=== PATIENT | male | born 1945 | race Two or more races ===

== ENCOUNTER 2017-07-03 09:41 | Emergency (ER) | payer MEDICARE ==
[2017-07-03 10:40] VITALS: BP 153/79
--- NOTE | 2017-07-03 11:18 | UC ---
Skin Complaint HPI - HPI Summary HPI Summary: Pt present with 3 days ago had pneumovacc to LUE. Pt states had discomfort and mild erythema at site of inject. Pt states since yesterday has increased edema to elbow and increased reddness spreading to elbow. Pt states little discomfort except with full flexion of elbow - states feels tight in midarm second to swelling. no elbow pain. No fevers, chills. No nausea Not immuocompromised. LHD Pt states called PCP today - no call returned Pt's medications reviewed this visit - History of Current Complaint Chief Complaint: UCSkin Time Seen by Provider: 07/03/17 10:44 Stated Complaint: RED SWOLLEN AREA ON ARM Hx Obtained From: Patient Onset/Duration: Gradual Onset - Allergy/Home Medications Allergies/Adverse Reactions: Allergies Allergy/AdvReac Type Severity Reaction Status Date / Time Penicillins Allergy Unknown Unknown Verified 07/03/17 10:40 Reaction Details Home Medications: Home Medications Metoprolol Tartrate TAB* [Lopressor TAB*] 50 mg PO DAILY 07/03/17 [History Confirmed 07/03/17] Review of Systems Constitutional: Negative Skin: Other - erythema, edema Neurovascular: Negative Musculoskeletal: Edema Neurological: Negative Psychological: Negative All Other Systems Reviewed And Are Negative: Yes PMH/Surg Hx/FS Hx/Imm Hx Previously Healthy: Yes - Surgical History Surgical History: Yes Surgery Procedure, Year, and Place: 08/2008 (right) hydrocele CABG x 4 1992 - Family History Known Family History: Positive: Cardiac Disease - parents - Social History Occupation: Retired Lives: With Family Alcohol Use: Rare Substance Use Type: None Smoking Status (MU): Never Smoked Tobacco Physical Exam Triage Information Reviewed: Yes Appearance: Well-Appearing, No Pain Distress Vital Signs: Initial Vital Signs Temp 99.0 F 07/03/17 10:34 Pulse 79 07/03/17 10:34 Resp 20 07/03/17 10:34 BP 153/79 07/03/17 10:34 Pulse Ox 99 07/03/17 10:34 Vital Signs Reviewed: Yes Eye Exam: Normal Eyes: Positive: Conjunctiva Clear ENT Exam: Normal ENT: Positive: Normal ENT inspection Dental Exam: Normal Neck exam: Normal Neck: Positive: Supple, Nontender Respiratory Exam: Normal Respiratory: Positive: Chest non-tender, Lungs clear, Normal breath sounds, No respiratory distress, No accessory muscle use Cardiovascular Exam: Normal Cardiovascular: Positive: RRR, No Murmur, Other: - 2+ radial 2+ulna CBT , 2 < sec Musculoskeletal Exam: Normal Musculoskeletal: Positive: Other: - full flex/ext elbow full pronate/supinate full flex/ext wrist Pt with edema from midshaft humerus to prox elbow mild TTP No fluctuance Skin: Positive: Other - t with edema from midshaft humerus to prox elbow mild TTP No fluctuance. Pt with erythema from midshaft humerus extending along dosral arm to elbow mild warmth no fluctuance, no induration Course/Dx - Course Course Of Treatment: Pt with edema and erythema extending from midhumerus to elbow s/p pneunovacc injection. Pt with LHD. Pt well appearing with stable VS. d/w and spouse at length - may be local reaction with edema from muscle trauma and distal spread second to dependent position and use. d/w pt possibity if early cellulitis given the extension after apparent initial improvement of erythema. Will startdoxy. f/u with pcp this week. return precautions. Pt in agreement with plan - Diagnoses Provider Diagnoses: extremity edema. early cellulitis Discharge - Discharge Plan Condition: Stable Disposition: HOME Prescriptions: DOXYcycline CAP(*) [DOXYcycline 100MG CAP(*)] 100 mg PO BID #14 cap Patient Education Materials: Cellulitis (ED) Referrals: Jaida Hess MD [Primary Care Provider] - Additional Instructions: - wear sling as much as possible over the next 2-3 days, then as needed for comfort and swelling -take antibiotics as prescribed until gone - if you have increased redness, red streaking, pain, fevers, chills or any other questions, concerns - call your doctor or go to the emergency department
== END 2017-07-03 11:35 | disposition home or self-care (01) ==
LOC: UCEAST 09:41
DX: L03.119 Cellulitis of unspecified part of limb (principal); Z88.0 Allergy status to penicillin; M79.89 Other specified soft tissue disorders
CPT/HCPCS: 99213; G0463

== ENCOUNTER → 2017-11-23 06:10 | Day surgery (SDC) | payer MEDICARE ==
--- NOTE | 2017-11-15 03:38 | HP ---
CC: Jaida Hess MD; Rah Becerra MD * ADMISSION HISTORY AND PHYSICAL: DATE OF ADMISSION: 11/23/17 ATTENDING SURGEON: Ranjith Tucker MD * (TILA Solorio, dictating). CHIEF COMPLAINT: Right inguinal hernia. HISTORY OF PRESENT ILLNESS: This is a 72-year-old male who for the past 4 years or so has noted an intermittent bulge in the right groin. In recent years , this has become more consistent. It has been associated with mild discomfort only, especially related to activity. He has not had any symptoms to suggest incarceration or strangulation. He denies any change in voiding habits, though does have BPH. He describes discomfort that sometimes radiates to the scrotum. He has modified his activity level somewhat related to symptoms. He was seen initially in our office by Dr. Tucker in April 2017. At that time, the patient was minimally symptomatic and deferred repair. He was seen more recently on 11/03/17 because of gradual increase in symptoms and was now interested in repair. Dr. Tucker confirmed the presence of a reducible right inguinal hernia. There were no additional palpable hernias. Abdomen is otherwise soft and nontender. Dr. Tucker discussed with him the indications for repair, the risks, benefits, and alternatives and options of approach. After review of all of these issues and the expected perioperative course, the patient would like to proceed as scheduled with laparoscopic repair of right inguinal hernia with mesh. He was seen by his aquatics coordinator, Dr. Correa, in July and we are awaiting a cardiology note from that office. PAST MEDICAL HISTORY: 1. Coronary artery disease (status post CABG in 1992) with recent cardiology evaluation (see attached note). 2. Hypertension. 3. Carotid artery stenosis (the patient states approximately 30% and has been asymptomatic. He had a recent carotid ultrasound). 4. Hyperlipidemia. 5. BPH (followed by Dr. Becerra). 6. GERD. PAST SURGICAL HISTORY: 1. CABG. 2. Right hydrocelectomy about 6 years ago. 3. Left inguinal herniorrhaphy approximately 30 years ago. 4. Carpal tunnel release bilaterally. No reported surgical or anesthesia complications. CURRENT MEDICATIONS: 1. Omeprazole 10 mg once daily. 2. Lipitor 80 mg once daily. 3. Aspirin 81 mg once daily, which he will continue perioperatively unless otherwise instructed. 4. Lisinopril/hydrochlorothiazide 20/25 once daily. 5. Metoprolol succinate extended release 100 mg once daily. DRUG ALLERGIES: PENICILLIN (rash). FAMILY HISTORY: Noncontributory in terms of anesthesia problems, bleeding or clotting disorders. SOCIAL HISTORY: The patient is . He is retired. He is fairly active and goes to the gym daily for primarily aerobic workouts with some light resistance exercises. He denies use of tobacco. Drinks alcohol infrequently ( less than 1 per day) and denies use of other recreational drugs. REVIEW OF SYSTEMS: General: No recent constitutional symptoms or acute illnesses. HEENT: He has been told by his eye doctor that he has early cataracts. No other problems reported. Cardiovascular: No recent chest pain, palpitations, or shortness of breath. See attached from Dr. Correa. Respiratory: No chronic cough or shortness of breath. GI: No problems reported. I did not ask him when his last colonoscopy was. : Followed by Dr. Becerra. No recent changes. He does have nocturia x2 to 3, but apparently has insignificant postvoid residual. Endocrine: No diabetes or thyroid dysfunction. PHYSICAL EXAMINATION GENERAL: Well-nourished, mildly obese male, in no acute distress. VITAL SIGNS: Height 70.5 inches, weight 200 pounds, BMI 28.3. Blood pressure 150/86, pulse 78, respirations 18. HEENT: Pupils are equal, round, reactive. EOMs intact. No conjunctival pallor. Oropharynx: Teeth in good repair. No intraoral lesions. NECK: No lymphadenopathy, thyromegaly, or masses. LUNGS: Clear to auscultation. No rales or wheezes. HEART: Regular rate and rhythm. I did not appreciate any murmurs. ABDOMEN: Soft, nontender to palpation. No palpable masses or organomegaly. Per Dr. Tucker' exam, well-healed left groin scar from prior herniorrhaphy. Nontender, reducible right inguinal hernia. GENITALIA: Not examined. RECTAL: Not done. BACK: No spinous process or CVA tenderness. EXTREMITIES: No edema. NEUROLOGICAL: Grossly intact. SKIN: Warm and dry. No suspicious rashes or lesions. IMPRESSION: Right inguinal hernia. PLAN: Laparoscopic repair of right inguinal hernia with mesh. JOBY TINAJERO, [place] [id number]/[facility] #: [id number] DARLINE
[~2017-11-23 06:10] MED LIST: Acetaminophen TAB* 325 MG PO PRN; Buffered Lidocaine 0.9% SYRIN* 5 ML/SYR SYRINGE INTRADERM ONE; Bupivacaine 0.25% SDV* 30 ML ONE; Cisatracurium* 2 MG/ML MDV 5 ML ONE; Dexamethasone IV* 4 MG/ML 1 ML (4 MG) ONE; EPHEDrine (Pressors)* 50 MG/ML VIAL ONE; HYDROmorphone INJ* 1 MG/ML CARPUJECT SYRINGE IV PRN; Ketorolac INJ* 30 MG/ML 1 ML VIAL IV PRN; Ketorolac INJ* 30 MG/ML 1 ML VIAL ONE; Lidocaine 2% PF * 5 ML VIAL ONE; Midazolam* 1 MG/ML 2 ML VIAL (2 MG) ONE; Naloxone* 0.4 MG/ML 1 ML VIAL IV PRN; Ondansetron INJ* 2 MG/ML VIAL ONE; PROCHLORPERAZINE INJ 5 MG/ML 2 ML VIAL IV PRN; Propofol* 10 MG/ML 20 ML BTL IV PUSH ONE; Succinylcholine* 20 MG/ML 10 ML VIAL ONE; ceFAZolin 2 GM (*##) 2 GM/100 ML BAG USE CEFA2SOL IVPB ONE; fentaNYL* 50 MCG/ML 2 ML VIAL (100 MCG VIAL) IV PRN; fentaNYL* 50 MCG/ML 2 ML VIAL (100 MCG VIAL) ONE
[2017-11-23 10:27] VITALS: BP 143/81
--- NOTE | 2017-11-24 21:21 | OP ---
CC: Jaida Hess MD * DATE OF OPERATION: 11/23/17 - [facility] DATE OF : 47 SURGEON: Ranjith Tucker MD PLANT AND MAINTENANCE TECHNICIAN: Khushi Shepard NP ANESTHESIOLOGIST: Dr. Street. ANESTHESIA: General endotracheal. PRE-OP DIAGNOSIS: Right inguinal hernia. POST-OP DIAGNOSIS: Right inguinal hernia. OPERATIVE PROCEDURE: Laparoscopic repair of right inguinal hernia with mesh. ESTIMATED BLOOD LOSS: Minimal. IV FLUIDS: Crystalloids. SPECIMENS: None. DRAINS: None. COMPLICATIONS: None. COUNTS: The instrument, needle, and sponge counts were correct. DESCRIPTION OF PROCEDURE: The patient was brought to the operating room and placed on the table supine. Sequential compression devices were placed on both lower extremities and general anesthesia was administered. Spence catheter was placed. Abdomen was prepped and draped in usual sterile fashion and appropriate antibiotics were administered. After sterile prep and drape, time-out was performed. Local anesthetic was infiltrated into the skin and soft tissue prior to making each incision. Initial incision was an infraumbilical incision and after divided subcutaneous tissues, the anterior rectus fascia was identified to the right of the midline. This was incised transversely and the underlying rectus muscle was retracted laterally. A preperitoneal balloon dissector was placed down to the level of the pubic symphysis and insufflation was performed under direct visualization. The balloon was removed and the 12-mm blunt port was placed and then carbon-dioxide was insufflated to a pressure of 12 mmHg. Under direct visualization, two 5-mm trocars were placed in the lower midline. Dissection was proceeded from the midline laterally, identifying the pubic symphysis, Taye's ligament and inferior epigastric vessels. There is a direct inguinal hernia that was fully reduced. The peritoneal sac was reflected back off of the retroperitoneum and dissection proceeded laterally to the anterior superior iliac spine. Repair was then performed with the ProGrip mesh, placing this into the preperitoneal space and ensuring coverage of the direct, indirect and femoral spaces. The preperitoneal space was then desufflated with the mesh under direct visualization, ensuring it lying in good position. A 5-mm ports were removed and the 12-mm port was repositioned into the peritoneal cavity and then inspection of the quadrants from the peritoneum revealed no evidence of peritoneal defects and the mesh lie in good position. The carbon-dioxide was released and umbilical site was closed with 0 Polysorb in interrupted fashion to approximate posterior and anterior layers of the rectus sheath. Skin incisions were closed with 4-0 Monocryl in subcuticular fashion. Steri-Strips were applied. The patient tolerated the procedure well and was extubated and transferred to recovery in a stable condition. [id number]/[facility] #: [id number] MTDD
== END | disposition home or self-care (01) ==
LOC: OR 06:10
PROVIDERS: ATTEND Surgery
DX: K44.9 Diaphragmatic hernia without obstruction or gangrene (principal); I25.10 Atherosclerotic heart disease of native coronary artery without angina pectoris; Z95.1 Presence of aortocoronary bypass graft; I10 Essential (primary) hypertension; E78.5 Hyperlipidemia, unspecified; N40.0 Benign prostatic hyperplasia without lower urinary tract symptoms; K21.9 Gastro-esophageal reflux disease without esophagitis; Z79.82 Long term (current) use of aspirin; Z79.899 Other long term (current) drug therapy; Z88.0 Allergy status to penicillin
CPT/HCPCS: J0330; J1100; J1885; J2250; J2405; J2704; J3010

== ENCOUNTER 2018-07-12 13:58 | Emergency (ER) | payer MEDICARE ==
[2018-07-12 14:11] VITALS: BP 140/81
--- NOTE | 2018-07-12 14:28 | UC ---
Elbow Pain - HPI Summary HPI Summary: The patient is a 73-year-old male who slipped and fell about a week ago injuring his right elbow. His elbow started improving over the course of the next few days and he thought it was on its way to healing. Today doing yard work he experienced a worsening of his pain. He is right handed. He has had bruising down into his right forearm and wrist. He has no wrist pain. - History of Current Complaint Chief Complaint: UCUpperExtremity Stated Complaint: ARM INJURY Time Seen by Provider: 07/12/18 14:28 Hx Obtained From: Patient Onset/Duration: Days Severity Initially: Moderate Severity Currently: Mild Pain Intensity: 4 Pain Scale Used: 0-10 Numeric Location Of Pain: Is Discrete @ - near radial head Character: Dull, Aching Aggravating Factor(s): Movement, Pulling, Twisting Alleviating Factor(s): Rest Associated Signs And Symptoms: Positive: Swelling, Bruising Body - Head: 1 - tender here/unable to fully extend 2 - ecchymsis and swelling but non tender - Allergies/Home Medications Allergies/Adverse Reactions: Allergies Allergy/AdvReac Type Severity Reaction Status Date / Time Penicillins Allergy See Comment Verified 07/12/18 14:11 PMH/Surg Hx/FS Hx/Imm Hx Previously Healthy: Yes Endocrine History: Dyslipidemia Cardiovascular History: Cardiac Disease, Hypertension - Surgical History Surgical History: Yes Surgery Procedure, Year, and Place: 08/2008 (right) hydrocele. CABG x 4 1992. LEFT INGUINAL HERNIA-30 YEARS AGO. CARPAL TUNNEL RELEASE- BILATERAL - Family History Known Family History: Positive: Cardiac Disease - parents, Hypertension - Social History Alcohol Use: Rare Substance Use Type: None Smoking Status (MU): Never Smoked Tobacco Review of Systems Constitutional: Negative Skin: Bruising Eyes: Negative ENT: Negative Respiratory: Negative Cardiovascular: Negative Gastrointestinal: Negative Genitourinary: Negative Motor: Negative Neurovascular: Negative Musculoskeletal: Arthralgia Neurological: Negative Psychological: Negative All Other Systems Reviewed And Are Negative: Yes Physical Exam Triage Information Reviewed: Yes Appearance: Well-Appearing, No Pain Distress, Well-Nourished Vital Signs: Initial Vital Signs Temp 97.9 F 07/12/18 14:06 Pulse 72 07/12/18 14:06 Resp 18 07/12/18 14:06 BP 140/81 07/12/18 14:06 Pulse Ox 99 07/12/18 14:06 Eyes: Positive: Conjunctiva Clear ENT: Negative: Hearing grossly normal - decreased, Nasal congestion, Nasal drainage, Trismus, Muffled voice, Hoarse voice Neck: Positive: Supple, Nontender Respiratory: Positive: Lungs clear, Normal breath sounds, No respiratory distress, No accessory muscle use Cardiovascular: Positive: RRR, No Murmur Musculoskeletal: Positive: ROM Limited @ - right elbow- see image Neurological: Positive: Alert Psychological Exam: Normal Skin Exam: Normal Procedures - Splinting Right Upper Extremity Location: Right posterior splint Hand-Made Type: orthoglass Splint: posterior Pre-Proc Neuro Vasc Exam: normal Post-Proc Neuro Vasc Exam: normal Diagnostics - Radiology No standard instances Radiology Interpretation Completed By: Radiologist Summary of Radiographic Findings: Nondisplaced fracture of the coronoid process Elbow Pain Course/Dx - Differential Dx/Diagnosis Provider Diagnoses: Nondisplaced fracture of the coronoid process RIGHT ELBOW Discharge - Sign-Out/Discharge Documenting (check all that apply): Patient Departure All imaging exams completed and their final reports reviewed: Yes - Discharge Plan Condition: Stable Disposition: HOME Patient Education Materials: Elbow Fracture (ED), Splint Care (ED) Referrals: Jonh Plascencia MD [Medical Doctor] - As Soon As Possible Additional Instructions: splint sling tylenol if needed Nondisplaced fracture of the coronoid process of the right elbow - Billing Disposition and Condition Condition: STABLE Disposition: Home
== END 2018-07-12 15:42 | disposition home or self-care (01) ==
LOC: UCEAST 13:58
DX: S42.134A Nondisplaced fracture of coracoid process, right shoulder, initial encounter for closed fracture (principal); W01.0XXA Fall on same level from slipping, tripping and stumbling without subsequent striking against object, initial encounter; Y92.9 Unspecified place or not applicable; Z88.0 Allergy status to penicillin
CPT/HCPCS: 99212; G0463

== ENCOUNTER 2019-04-21 10:14 | Emergency (ER) | payer MEDICARE ==
--- NOTE | 2019-04-21 11:18 | ED ---
Hypertension - HPI Summary HPI Summary: Pt is a 74 y/o M presenting to the ED with a chief complaint of hypertension. He states he has been on Metoprolol and Lisinopril for quite some time, but has started to take two of the Lisinopril for the last two weeks. His blood pressure yesterday was low, but today it was significantly higher. He also noticed this morning that his heart rate was high when he started exercising, between 110 and 136. He reports intermittent dizziness with standing after taking his medication. He denies CP or SOB. - History of Current Complaint Chief Complaint: EDGeneral Stated Complaint: FAST PULSE,HIGH BLOOD PRESSURE PER PT Time Seen by Provider: 04/21/19 10:33 Hx Obtained From: Patient Onset/Duration: Started Hours Ago, Still Present Timing: Intermittent, Lasting Hours Aggravating Factor(s): Exertion, Position Alleviating Factor(s): Nothing Associated Signs & Symptoms: Dizziness - Allergies/Home Medications Allergies/Adverse Reactions: Allergies Allergy/AdvReac Type Severity Reaction Status Date / Time Penicillins Allergy See Comment Verified 04/21/19 10:20 Home Medications: Home Medications Aspirin EC TAB* [Ecotrin EC Low Dose 81 MG*] 81 mg PO BEDTIME 04/21/19 [History Confirmed 04/21/19] Atorvastatin* [Lipitor*] 80 mg PO BEDTIME 04/21/19 [History Confirmed 04/21/19] Metoprolol Succinate XL TAB* [Toprol XL TAB*] 100 mg PO QAM 04/21/19 [History Confirmed 04/21/19] Omeprazole CAP(NF) [PriLOSEC CAP(NF)] 10 mg PO QAM 04/21/19 [History Confirmed 04/21/19] PMH/Surg Hx/FS Hx/Imm Hx Previously Healthy: Yes Endocrine/Hematology History: Denies: Hx Diabetes, Hx Thyroid Disease Cardiovascular History: Reports: Hx Angina - 25 YEARS AGO, Hx Coronary Artery Disease - 25 YEARS AGO-OPEN HEART [id number] AT [facility], Hx Hypercholesterolemia, Hx Hypertension - ON MEDICATION FOR, Other Cardiovascular Problems/Disorders - SOME VALVE REGURGITATION PER PATIENT//DR. KRISHNA Denies: Hx Congestive Heart Failure, Hx Pacemaker/ICD Respiratory History: Reports: Hx Sleep Apnea - POSSIBLY - NOT FORMALLY DIAGNOSED -SNORING Denies: Hx Asthma, Hx Chronic Obstructive Pulmonary Disease (COPD) GI History: Reports: Hx Diverticulosis, Hx Gastroesophageal Reflux Disease - ON MEDICATION FOR, Hx Hiatal Hernia, Other GI Disorders - 03/09 special screening for malignant neoplasms/colon Denies: Hx Ulcer History: Reports: Hx Benign Prostatic Hyperplasia Denies: Hx Renal Disease Musculoskeletal History: Reports: Hx Arthritis - HANDS Sensory History: Reports: Hx Cataracts - BIALTERAL Denies: Hx Contacts or Glasses, Hx Hearing Aid Opthamlomology History: Reports: Hx Cataracts - BIALTERAL Denies: Hx Contacts or Glasses Neurological History: Reports: Other Neuro Impairments/Disorders - " OCCASIONALLY WHILE LYING IN BED-WHOLE BODY SHAKES FOR A FRACTION OF A SEC" Psychiatric History: Reports: Hx Anxiety - Surgical History Surgery Procedure, Year, and Place: 08/2008 (right) hydrocele. CABG x 1992. LEFT INGUINAL HERNIA-30 YEARS AGO. CARPAL TUNNEL RELEASE- BILATERAL Hx Anesthesia Reactions: No Infectious Disease History: No Infectious Disease History: Denies: Hx Clostridium Difficile, Hx Hepatitis, Hx Human Immunodeficiency Virus (HIV), Hx of Known/Suspected MRSA, Hx Shingles, Hx Tuberculosis, Hx Known/ Suspected VRE, Hx Known/Suspected VRSA, History Other Infectious Disease, Traveled Outside the [place] in Last 30 Days - Family History Known Family History: Positive: Cardiac Disease - parents, Hypertension - Social History Alcohol Use: Rare Hx Substance Use: No Substance Use Type: Reports: None Hx Tobacco Use: No Smoking Status (MU): Never Smoked Tobacco Review of Systems Negative: Chest Pain Negative: Shortness Of Breath Neurological: Other - dizziness All Other Systems Reviewed And Are Negative: Yes Physical Exam - Summary Physical Exam Summary: Appearance: The patient is well-nourished in no acute distress and in no acute pain. Skin: The skin is warm and dry and skin color reflects adequate perfusion. HEENT: The head is normocephalic and atraumatic. The pupils are equal and reactive. The conjunctivae are clear and without drainage. Nares are patent and without drainage. Mouth reveals moist mucous membranes and the throat is without erythema and exudate. The external ears are intact. The ear canals are patent and without drainage. The tympanic membranes are intact. Neck: The neck is supple with full range of motion and non-tender. There are no carotid bruits. There is no neck vein distension. Respiratory: Chest is non-tender. Lungs are clear to auscultation and breath sounds are symmetrical and equal. Cardiovascular: Heart is irregularly irregular. There is no murmur or rub auscultated. There is no peripheral edema and pulses are symmetrical and equal. Abdomen: The abdomen is soft and non-tender. There are normal bowel sounds heard in all four quadrants and there is no organomegaly palpated. Musculoskeletal: There is no back tenderness noted. Extremities are non-tender with full range of motion. There is good capillary refill. There is no peripheral edema or calf tenderness elicited. Neurological: Patient is alert and oriented to person, place and time. The patient has symmetrical motor strength in all four extremities. Cranial nerves are grossly intact. Deep tendon reflexes are symmetrical and equal in all four extremities. Psychiatric: The patient has an appropriate affect and does not exhibit any anxiety or depression. Triage Information Reviewed: Yes Vital Signs On Initial Exam: Initial Vitals Temp Pulse Resp BP Pulse Ox 97.5 F 91 16 148/105 100 04/21/19 10:16 04/21/19 10:16 04/21/19 10:16 04/21/19 10:16 04/21/19 10:16 Vital Signs Reviewed: Yes Diagnostics - Vital Signs Vital Signs Temp Pulse Resp BP Pulse Ox 04/21/19 10:16 97.5 F 91 16 148/105 100 - Laboratory Result Diagrams: 04/21/19 11:28 04/21/19 11:28 Lab Statement: Any lab studies that have been ordered have been reviewed, and results considered in the medical decision making process. - EKG 1121 Cardiac Rate: Other Rate - afib 91bpm EKG Rhythm: Atrial Fibrillation ST Segment: Normal Ectopy: None Summary of EKG Findings: EKG at 1121 shows atrial fibrillation at 91bpm with normal ST, no ectopy, no STEMI. Hypertension Course/Dx - Course Course Of Treatment: Mr. Chatman presents with a new onset of atrial fibrillation. He is essentially completely asymptomatic but saw that his heart rate went fast when he was walking on the treadmill. This is unusual for him because he takes metoprolol. He has been having blood pressure problems for 2- 3 weeks and tracking them closely. It is unclear how long he has been in atrial fibrillation but likely quite a while. His potassium, magnesium and sodium were all a bit low and he was given some correction here. I spoke with who felt that the patient could be treated with Eliquis and discharged for follow-up with his own mortarman next week or if the patient was uncomfortable we would admit him for monitoring and correction of his electrolytes. He was not interested in staying in the hospital and was comfortable going home and was started on Eliquis. - Diagnoses Provider Diagnoses: New onset a-fib Discharge - Sign-Out/Discharge Documenting (check all that apply): Patient Departure Patient Received Moderate/Deep Sedation with Procedure: No - Discharge Plan Condition: Stable Disposition: HOME Prescriptions: Apixaban* [Eliquis*] 5 mg PO BID #20 tab Patient Education Materials: A-fib (Atrial Fibrillation) (ED) Referrals: Jaida Hess MD [Primary Care Provider] - Additional Instructions: Please stop taking your daily Aspirin. Please follow up with your mortarman within the next week, and take your prescribed medications as instructed. Return to the emergency department with any new or worsening symptoms. - Billing Disposition and Condition Condition: STABLE Disposition: Home - Attestation Statements Document Initiated by Scribe: Yes Documenting Scribe: Maria Hatch Provider For Whom Annalisa is Documenting (Include Credential): Rony Ness MD. Scribe Attestation: Maria Tejada, reynaed for Rony Ness MD. on 04/21/19 at 1603. Scribe Documentation Reviewed: Yes Provider Attestation: The documentation as recorded by the scribeMaria accurately reflects the service I personally performed and the decisions made by me, Rony Ness MD. Status of Scribe Document: Viewed
[2019-04-21 11:38] LABS: ABS Eosinophils 0.1 10^3/ul (0-0.6); ABS Lymphocytes 1.1 10^3/ul (1.0-4.8); ABS Monocytes 0.9 10^3/ul (0-0.8); ABS Neutrophils 6.2 10^3/ul (1.5-7.7); Eosinophil % 1.5 %; Hematocrit 41 % (42-52); Hemoglobin 14.1 g/dL (14.0-18.0); Mean Corpuscular HGB Conc 35 g/dL (31-36); Mean Corpuscular Hemoglobin 29 pg (27-31); Mean Corpuscular Volume 83 fL (80-94); Mean Platelet Volume 8.2 fL (7.4-10.4); Platelet Count 158 10^3/uL (150-450); Red Blood Count 4.91 10^6 /uL (4.18-5.48); Red Cell Distribution Width 14 % (10-15); White Blood Count 8.3 10^3/uL (3.5-10.8)
[2019-04-21 11:44] LABS: INR 1.03 (0.82-1.09)
[2019-04-21 11:55] LABS: Albumin 4.4 g/dL (3.2-5.2); Albumin/Globulin Ratio 1.6 (1-3); BUN/Creatinine Ratio 15.2 (8-20); Calcium 9.2 mg/dL (8.6-10.3); EGFR African American 83.8 (>60); EGFR Non-African American 69.2 (>60); Globulin 2.8 g/dL (2-4); Magnesium 1.6 mg/dL (1.9-2.7); Potassium 3.9 mmol/L (3.5-5.0); Total Bilirubin 1.1 mg/dL (0.2-1.0); Total Protein 7.2 g/dL (6.4-8.9)
[2019-04-21] MEDS ORDERED: Magnesium Sulfate 1 GM IV* 1 GM/100 ML BAG IV ONE (12:03)
[2019-04-21] MEDS ORDERED: NS 0.9% 1000 ML** 1,000 ML IV ONE (12:03)
[2019-04-21] MEDS ORDERED: Potassium Chlor TAB* 20 MEQ TAB.ER PO ONE (12:03)
[2019-04-21 12:16] LABS: TSH (Thyroid Stimulating Horm) 1.28 mcIU/mL (0.34-5.60)
[2019-04-21] MEDS ORDERED: Apixaban* 5 MG TAB PO ONE (13:56)
[2019-04-21 15:01] VITALS: BP 140/85
== END 2019-04-21 14:24 | disposition home or self-care (01) ==
LOC: ED 10:14
DX: I48.91 Unspecified atrial fibrillation (principal); E78.00 Pure hypercholesterolemia, unspecified; I10 Essential (primary) hypertension; K21.9 Gastro-esophageal reflux disease without esophagitis; I25.119 Atherosclerotic heart disease of native coronary artery with unspecified angina pectoris; Z95.1 Presence of aortocoronary bypass graft; Z79.82 Long term (current) use of aspirin; Z79.899 Other long term (current) drug therapy; Z88.0 Allergy status to penicillin
CPT/HCPCS: 36415; 80053; 83605; 83735; 84443; 84484; 85025; 85610; 93005; 96365; 96366; 99284; A9270-GY; J3475

== ENCOUNTER 2019-08-13 05:38 | Emergency (ER) | payer MEDICARE ==
--- OUTSIDE RECORDS SUMMARY | 2019-08-13 05:48 | XMS REPORT | Summary of Care ---
:1945 Author Organization [facility] Address [address] [facility] [place] [address] Care Team Providers Name Role Phone Jaida Hess Primary Care Provider Reason for Visit Reason Comments Back Pain mild mid back and under right shoulder blade pain for long time, more frequent recently Encounter Details Date Type Department Care Team Description 08/01/2019 Office Visit [place] [facility] Jaida Hess MD Essential hypertension (Primary Dx); Medicine [address] Persistent atrial fibrillation; [address] [place] [address] Anticoagulant long-term use; [place] [address] Acute midline low back pain without sciatica [phone] Allergies Active Allergy Reactions Severity Noted Date Comments Penicillins Unknown Reaction 10/20/2007 Seasonal Respiratory Reaction 02/16/2015 sneezing documented as of this encounter (statuses as of 08/01/2019) Medications Medication Sig Dispensed Refills Start Date End Date Status nitroglycerin (NITROSTAT) Place 1 Tab 25 Tab 1 02/13/2011 Active 0.4 MG Sublingual SL under tongue TabIndications: Coronary EVERY FIVE artery disease involving MINUTES [place] heart without NEEDED for angina pectoris, chest pain. may unspecified vessel or repeat x 1 lesion type LISINOPRIL-HCTZ 20-25 MG Take 2 Tabs by 180 Tab 3 07/11/2018 Active Oral TabIndications: mouth DAILY. Essential hypertension metoprolol succinate TAKE 1 TABLET 90 Tab 3 10/24/2018 Active (TOPROL XL) 100 MG Oral BY MOUTH EVERY TABLET SR 24 DAY HRIndications: Essential hypertension omeprazole (PRILOSEC) 10 TAKE 1 CAPSULE 180 Cap 3 01/31/2019 Active MG Oral CAPSULE DELAYED BY MOUTH TWO RELEASEIndications: TIMES DAILY Gastroesophageal reflux disease without esophagitis atorvastatin (LIPITOR) 80 TAKE 1 TABLET 90 Tab 3 02/06/2019 Active MG Oral TabIndications: BY MOUTH AT Lipid disorder BEDTIME Apixaban (ELIQUIS PO) Take 25 mg by 0 04/14/2019 Active mouth TWICE DAILY. diphenhydrAMINE HCl Take 25 mg by 0 Active (BENADRYL PO)Indications: mouth EVERY to help sleep BEDTIME. Indications: to help sleep documented as of this encounter (statuses as of 08/01/2019) Active Problems Problem Noted Date Anticoagulant long-term use 08/01/2019 Persistent atrial fibrillation 05/15/2019 Overview: Nuclear medicine stress test Negative 04/24 Erythema nodosum 12/13/2015 Eosinophilia 05/27/2015 Low HDL (under 40) 05/27/2015 BMI 30.0-30.9,adult 02/06/2011 Overview: .This patient's BMI has been calculated and is above average, and BMI management plan is completed. General patient education discussion including: obesity-related excess mortality Patient has had a drastic reduction in BMI over the years from morbid obeisty to this acceptable llevel Erectile dysfunction 11/22/2009 Lipid disorder 10/20/2007 Essential hypertension 10/20/2007 Benign Prostatic Hypertrophy 10/20/2007 Special screening for malignant neoplasms, colon 10/20/2007 Overview: Colonoscopy performed 03/2004 CAD (coronary artery disease) 09/21/2007 Overview: S/p CABG [address] Garcia (SHELL-->LAD, SVG seq to RPDA, OM1, and Diag). documented as of this encounter (statuses as of 08/01/2019) Resolved Problems Problem Noted Date Resolved Date Other neutropenia 01/28/2018 06/23/2019 BMI 31.0-31.9,adult 02/13/2011 11/18/2011 Hiatal Hernia 10/20/2007 11/18/2011 Lipid disorder 09/21/2007 11/18/2011 documented as of this encounter (statuses as of 08/01/2019) Immunizations Name Administration Dates Next Due Influenza (IM) Preservative Free 05/31/2017, 05/23/2013, 05/11/2012, 06/03/2011, 06/13/2008 Influenza Vaccine High Dose 06/22/2018, 05/28/2016, 07/15/2015, 05/24/2014 Influenza Vaccine Whole 06/23/2019 Influenza Virus Vaccine - Whole 06/23/2007 PNEUMOCOCCAL POLYSACCHARIDE VACCINE 07/01/2017 Pneumococcal Conjugate(13 Valent) 08/26/2015 TETANUS & DIPHTHERIA TOXOID (OVER 7 03/11/2004 YRS) ZOSTER (ZOSTAVAX) VACCINE 12/13/2015 documented as of this encounter Social History Tobacco Use Types Packs/Day Years Used Date Never Smoker Smokeless Tobacco: Never Used Alcohol Use Drinks/Week oz/Week Comments No 0 Standard drinks or equivalent 0.0 Sex Assigned at Date Recorded Not on file Job Start Date Occupation Industry Not on file Not on file Not on file Travel History Travel Start Travel End No recent travel history available. documented as of this encounter Last Filed Vital Signs Vital Sign Reading Time Taken Comments Blood Pressure 140/80 08/01/2019 10:11 AM EST Pulse 76 08/01/2019 10:11 AM EST Temperature - - Respiratory Rate - - Oxygen Saturation 98% 08/01/2019 10:11 AM EST Inhaled Oxygen Concentration - - Weight 89.8 kg (198 lb) 08/01/2019 10:11 AM EST Height 175.3 cm (5' 9") 08/01/2019 10:11 AM EST Body Mass Index 29.24 08/01/2019 10:11 AM EST documented in this encounter Progress Notes Jaida Hess MD - 08/01/2019 10:00 AM EST NAME:Eleuterio Chatman 1945: 1945 ENC Date: 08/01/2019 CC: Chief Complaint Patient presents with Back Pain mild mid back and under right shoulder blade pain for long time, more frequent recently Eleuterio Chatman is a 74-y.o. 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 atorvastatin (LIPITOR) 80 MG Oral Tab TAKE 1 TABLET BY MOUTH AT BEDTIME diphenhydrAMINE HCl (BENADRYL PO) Take 25 mg by mouth EVERY BEDTIME. Indications: to help sleep LISINOPRIL-HCTZ 20-25 MG Oral Tab Take 2 Tabs by mouth DAILY. metoprolol succinate (TOPROL XL) 100 MG Oral TABLET SR 24 HR TAKE 1 TABLET BY MOUTH EVERY DAY nitroglycerin (NITROSTAT) 0.4 MG Sublingual SL Tab Place 1 Tab under tongue EVERY FIVE MINUTES NEEDED for chest pain. may repeat x 1 omeprazole (PRILOSEC) 10 MG Oral CAPSULE DELAYED RELEASE TAKE 1 CAPSULE BY MOUTH TWO TIMES DAILY No current facility-administered medications for this visit. Patient Active Problem List Diagnosis Date Noted Anticoagulant long-term use 08/01/2019 Persistent atrial fibrillation 05/15/2019 Nuclear medicine stress test Negative 04/24 Erythema nodosum 12/13/2015 Eosinophilia 05/27/2015 Low HDL (under 40) 05/27/2015 BMI 30.0-30.9,adult 02/06/2011 .This patient's BMI has been calculated and is above average, and BMI management plan is completed. General patient education discussion including: obesity-related excess mortality Patient has had a drastic reduction in BMI over the years from morbid obeisty to this acceptable llevel Erectile dysfunction 11/22/2009 Lipid disorder 10/20/2007 Essential hypertension 10/20/2007 Benign Prostatic Hypertrophy 10/20/2007 Special screening for malignant neoplasms, colon 10/20/2007 Colonoscopy performed 03/2004 CAD (coronary artery disease) 09/21/2007 S/p CABG [address] Garcia (SHELL-->LAD, SVG seq to RPDA, OM1, and Diag ). History reviewed. No pertinent family history. No cardiopulmonary symptoms No upper or lower GI complaints No urinary tract symptoms. No bruising/ bleeding. No neurological complaints . No insomnia.+ . Social History Tobacco Use Smoking status: Never Smoker Smokeless tobacco: Never Used Substance Use Topics Alcohol use: No Alcohol/week: 0.0 standard drinks Drug use: No OBJECTIVE: BP 140/80 | Pulse 76 | Ht 5' 9" (1.753 m) | Wt 198 lb (89.8 kg) | SpO2 98% | BMI 29.24 kg/m. Heent neg Neck no JVD, thyromegaly or bruit Lungs Clear CV rrr Right scapula - Negative CVa tenderness - Abd soft, nontender, no organomegaly Ext no edema; no lesions; pulses intact Neuro: intellect intact ; motor including gait unremarkable A/P ICD-9-CM ICD-10-CM 1. Essential hypertension 401.9 I10 2. Persistent atrial fibrillation 427.31 I48.19 3. Anticoagulant long-term use V58.61 Z79.01 4. Acute midline low back pain without sciatica 724.2 M54.5 There are no Patient Instructions on file for this visit. AUTHOR: Jaida Hess MD 15:44 08/01/2019 documented in this encounter Plan of Treatment Health Maintenance Due Date Last Done Comments MEDICARE ANNUAL WELLNESS 05/28/2017 05/28/2016, 05/28/2016, VISIT 05/24/2014, Additional history exists Colonoscopy 01/01/2020 12/31/2014, 10/09/2009 LIPID DISORDER SCREENING 06/13/2020 06/13/2019, 02/06/2019, 06/14/2018, Additional history exists DEPRESSION SCREENING 06/23/2020 06/23/2019 FALL RISK ASSESSMENT 08/01/2020 08/01/2019, 08/01/2019 ZOSTER IMMUNIZATION SERIES 08/01/2020 12/13/2015 Postponed from (2 of 3) 02/07/2016 (Vaccine not available) PNEUMOCOCCAL 65+YRS Completed 07/01/2017, 08/26/2015 INFLUENZA VACCINE Completed 06/23/2019, 06/22/2018, 05/31/2017, Additional history exists HPV IMMUNIZATION SERIES Aged Out No longer eligible based on patient's age to complete this topic MENINGOCOCCAL VACCINE IMM Aged Out No longer eligible based on patient's age to complete this topic documented as of this encounter Goals Goal Patient Goal Associated Recent Patient-Stated? Author Type Problems Progress Blood Pressure Blood Pressure 140/80 No Jimena, < 150/90 (08/01/2019 MD Jaida 10:11 AM EST) Note: This is an individualized treatment (blood pressure) goal for Eleuterio Chatman: Displayed above (on the left) is your goal for blood pressure control. Your most recent blood pressure is also shown above, on the right. You should try to achieve blood pressures that are lower than your goal listed above (on the left). Weight loss vs. 18 mo max Lifestyle 3 (08/01/2019 10:11 AM EST) Jaida Espinosa MD (lbs) >= 10 Note: This is an individualized lifestyle goal for Eleuterio Chatman: Your body mass index (BMI) is more than 30. You should lose weight. A reasonable starting goal is to lose 10 pounds. Displayed above is how many pounds you have lost thus far towards your 10 pound weight loss goal. Take all prescribed medications as directed Self-management Jaida Espinosa MD Note: This is an individualized self-management goal for Eleuterio Chatman: Please take all prescribed medications as directed. 1. Do not skip doses. If you cannot afford your medications, talk with your doctor. 2. Use a pill reminder system such as a pill box if needed. Your pharmacist can help you with this. 3. Contact your Pharmacy 5 days before your medication runs out. If you cannot take your medications for any reasons, talk with your doctor. 4. Please bring all of your medication bottles and inhalers (or a list of all your medications/inhalers) with you to every visit. Potential barriers to meeting all of your care plan goals will continue to be addressed on an ongoing basis. documented as of this encounter Results Not on filedocumented in this encounter Visit Diagnoses Diagnosis Essential hypertension - Primary Unspecified essential hypertension Persistent atrial fibrillation Atrial fibrillation Anticoagulant long-term use Encounter for long-term (current) use of anticoagulants Acute midline low back pain without sciatica documented in this encounter Insurance Payer Benefit Plan / Subscriber ID Effective Dates Phone Address Type Group [employer] MEDICARE EXCELL xxxxxxxxxxxx 2015-Present [employer] MEDICARE BLUE PPO [phone]) Guarantor Name Account Type Relation to Date of Phone Billing Address Patient Eleuterio Chatman Personal/Famil 1945 [address] [phone] [place], [place] (Work) [id number] documented as of this encounter
--- OUTSIDE RECORDS SUMMARY | 2019-08-13 05:48 | XMS REPORT | Continuity of Care Document ---
:1945 External Reference #:[id number] Author Name Tamara Skinner M.D. 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 Onset: 05/17/2019 Social History Type Date Description Comments Sex Unknown ETOH Use Occasionally consumes beer Tobacco Use Start: Unknown Patient has never smoked Recreational Drug Use Denies Drug Use Smoking Status Reviewed: 07/24/19 Patient has never smoked Exercise Type/Frequency Exercises regularly Allergies, Adverse Reactions, Alerts Active Allergies Reaction Severity Comments Date Penicillin childhood reaction unknown 11/12/2017 Inactive Allergies NKDA 04/19/2017 Medications Active Medications SIG Qnty Indications Ordering Provider Date Omeprazole 1 by mouth twice Unknown 10mg daily Capsules Liperika 1 by mouth at Unknown 80mg Tablets bedtime Lisinopril-Hydrochlo Two tablets by [place], rothiazide mouth daily Reese Moeller MD 20-25mg Tablets Metoprolol Succinate once a day Jaida Hess MD ER 100mg Tablets ER 24HR Eliquis 1 by mouth twice 180tabs Tamara Beasley 5mg Tablets a day Erasto Skinner Benadryl Allergy 1 tablet by mouth Unknown 25mg at bedtime as Capsules needed for insomnia Immunizations Description No Information Available Vital Signs Date Vital Result Comment 07/24/2019 1:04pm Height 71 inches 5'11" Weight 196.12 lb with shoes Heart Rate 72 /min radial,regular BP Systolic Sitting 150 mmHg LA, reg cuff BP Diastolic Sitting 90 mmHg LA, reg cuff BP Systolic Standing 130 mmHg LA,reg cuff BP Diastolic Standing 88 mmHg LA,reg cuff BMI (Body Mass Index) 27.4 kg/m2 Ejection Fraction 60%-65% echo 05/04/19 05/30/2019 8:28am Height 71 inches 5'11" Weight 195.00 lb with sandals/clothes Heart Rate 80 /min radial, irregular BP Systolic Sitting 142 mmHg LA, reg cuff BP Diastolic Sitting 90 mmHg LA, reg cuff BP Systolic Standing 138 mmHg LA, reg cuff BP Diastolic Standing 90 mmHg LA, reg cuff BMI (Body Mass Index) 27.2 kg/m2 Ejection Fraction 60%-65% eccho 05/04/19 Results Description No Information Available Procedures Date Code Description Status 07/24/2019 51860 EKG Tracing & Interpretation Completed 07/12/2019 91366 Moderate Sedation Services; Same Phys Intl 15 Mins; PT >= Completed 5 Years 07/12/2019 70810 Cardioversion Completed 05/17/2019 31849 Moderate Sedation Services; Same Phys Intl 15 Mins; PT >= Completed 5 Years 05/17/2019 46291 Color Flow Doppler/Interp & Reprt Completed 05/17/2019 82765 Pulse Wave/Continuous-Interp.RPT Completed 05/17/2019 58232 Echocardiography, Transesophageal, Real Time W/Image 2D Completed W/W/O M-M 05/08/2019 92916 Holter Monitor Review (24 hr)dr review & interp only Completed 05/04/2019 88366 ECHO Transthoracic, Real-Time 2D With Doppler And Color Completed Flow 05/04/2019 33151 ECHO Transthoracic, Real-Time 2D With Doppler And Color Completed Flow 05/03/2019 38761 Treadmill Interp/Report Only Completed 05/03/2019 96867 Stress Test Supervsn W/Out I/R Completed 05/02/2019 95819 Echocardiography, Transesophageal, Real Time W/Image 2D Completed W/W/O M-M 05/01/2019 90743 ECG Monitor/Recording W/Visual Superimposition Scanning Completed 04/26/2019 09276 EKG Tracing & Interpretation Completed Medical Devices Description No Information Available Encounters Type Date Location Provider Dx Diagnosis Office Visit 07/24/2019 [facility] Tamara S. I48.91 Unspecified atrial 1:20p Erasto Skinner fibrillation I10 Essential (primary) hypertension I25.10 [place] heart disease [place] coronary artery w/o [facility] pctrs I34.0 Nonrheumatic mitral (valve) insufficiency Office Visit 05/30/2019 [facility] SVanessa I48.91 Unspecified atrial 9:[facility] Erasto Skinner fibrillation I10 Essential (primary) hypertension I25.10 [place]scl heart disease of [place] coronary artery w/o [facility] pctrs G47.30 Sleep apnea, unspecified I34.0 Nonrheumatic mitral (valve) insufficiency I35.1 Nonrheumatic aortic (valve) insufficiency E78.5 Hyperlipidemia, unspecified Office 04/26/2019 [facility]. R94.31 Abnormal Visit 2:20p Rebecca Skinner M.D. electrocardiogram [ECG] [EKG] I48.91 Unspecified atrial fibrillation I10 Essential (primary) hypertension I25.10 Athscl heart disease of [place] coronary artery w/o [facility] pctrs G47.30 Sleep apnea, unspecified Assessments Date Code Description Provider 07/24/2019 I48.91 Unspecified atrial fibrillation Tamara Skinner M.D. 07/24/2019 I10 Essential (primary) hypertension Tamara Skinner M.D. 07/24/2019 I25.10 Atherosclerotic heart disease of [place] Tamara Skinner M.D. coronary artery without angina pectoris 07/24/2019 I34.0 Nonrheumatic mitral (valve) Tamaar Skinner M.D. insufficiency 07/12/2019 I48.91 Unspecified atrial fibrillation Tamara Skinner M.D. 05/30/2019 I48.91 Unspecified atrial fibrillation Tamara Skinner M.D. 05/30/2019 I10 Essential (primary) hypertension Tamara Skinner M.D. 05/30/2019 I25.10 Atherosclerotic heart disease of [place] Tamara Skinner M.D. coronary artery without angina pectoris 05/30/2019 G47.30 Sleep apnea, unspecified Tamara Skinner M.D. 05/30/2019 I34.0 Nonrheumatic mitral (valve) Tamara Skinner M.D. insufficiency 05/30/2019 I35.1 Nonrheumatic aortic (valve) Tamara Skinner M.D. insufficiency 05/30/2019 E78.5 Hyperlipidemia, unspecified Tamara Skinner M.D. 05/17/2019 I48.91 Unspecified atrial fibrillation Tamara Skinner M.D. 05/08/2019 I48.91 Unspecified atrial fibrillation Tamara Skinner M.D. 05/04/2019 I48.91 Unspecified atrial fibrillation Tamara Skinner M.D. 05/04/2019 I48.91 Unspecified atrial fibrillation [place] ECHO Schedule 05/04/2019 R94.31 Abnormal electrocardiogram [ECG] [EKG] [place] ECHO Schedule 05/04/2019 I10 Essential (primary) hypertension [place] ECHO Schedule 05/04/2019 I25.10 Atherosclerotic heart disease of [facility] ECHO Schedule coronary artery without angina pectoris 05/03/2019 R94.31 Abnormal electrocardiogram [ECG] [EKG] Tamara Skinner M.D. 05/02/2019 I48.91 Unspecified atrial fibrillation Tamara Skinner M.D. 05/01/2019 I48.91 Unspecified atrial fibrillation Nurse Visit IC 05/01/2019 R94.31 Abnormal electrocardiogram [ECG] [EKG] Nurse Visit IC 04/26/2019 R94.31 Abnormal electrocardiogram [ECG] [EKG] Tamara Skinner M.D. 04/26/2019 I48.91 Unspecified atrial fibrillation Tamara Skinner M.D. 04/26/2019 I10 Essential (primary) hypertension Tamara Skinner M.D. 04/26/2019 I25.10 Atherosclerotic heart disease of [place] Tamara Skinner M.D. coronary artery without angina pectoris 04/26/2019 G47.30 Sleep apnea, unspecified Tamara Skinner M.D. Plan of Treatment 07/24/2019 - Tamara Skinner M.D.I48.91 Unspecified atrial fibrillationNew Orders:24 hour holter monitor, Ordered: 07/24/19Follow up:10 months ovI10 Essential (primary) lilalpcrfttfN84.10 Atherosclerotic heart disease of [place] coronary artery without angina ctvzuyiwK80.0 Nonrheumatic mitral (valve) insufficiency Functional Status Description No Information Available Mental Status Description No Information Available Referrals Refer to Reason for Referral Status Appt Lubna Brewer MD sleep apnea Sent 06/28/[address] [place] [phone]
--- OUTSIDE RECORDS SUMMARY | 2019-08-13 05:48 | XMS REPORT | Summary of Care ---
:1945 Author Organization [facility] Address [address] [address] Care Team Providers Name Role Phone Jaida Hess Primary Care Provider Reason for Visit Reason Comments Follow Up 6 month follow up and discuss CPAP Encounter Details Date Type Department Care Team Description 06/23/2019 Office Visit [place] [facility] Jaida Hess MD Essential hypertension (Primary Dx); Medicine [address] Coronary artery disease involving [place] coronary artery of [place] heart without angina pectoris; [address] [place] [address] Lipid disorder; [place] [address] Persistent atrial fibrillation [phone] Allergies Active Allergy Reactions Severity Noted Date Comments Penicillins Unknown Reaction 10/20/2007 Seasonal Respiratory Reaction 02/16/2015 sneezing documented as of this encounter (statuses as of 06/23/2019) Medications Medication Sig Dispensed Refills Start Date End Date Status nitroglycerin (NITROSTAT) Place 1 Tab 25 Tab 1 02/13/2011 Active 0.4 MG Sublingual SL under tongue TabIndications: Coronary EVERY FIVE artery disease involving MINUTES [place] heart without NEEDED for angina pectoris, chest [...] as of this encounter (statuses as of 06/23/2019) Active Problems Problem Noted Date Persistent atrial fibrillation 05/15/2019 Overview: Nuclear medicine [...] as of this encounter (statuses as of 06/23/2019) Resolved Problems Problem Noted Date Resolved Date Other neutropenia 01/28/2018 06/23/2019 BMI 31.0-31.9,adult 02/13/2011 11/18/2011 Hiatal Hernia 10/20/2007 11/18/2011 Lipid disorder 09/21/2007 11/18/2011 documented as of this encounter (statuses as of 06/23/2019) Immunizations Name Administration Dates Next Due Influenza (IM) Preservative Free 05/31/2017, 05/23/2013, 05/11/2012, 06/03/2011, 06/13/2008 Influenza Vaccine 65 Yrs + 06/23/2019 (Deferred: Patient Refused - not before a trip he is taking) Influenza Vaccine High Dose 06/22/2018, 05/28/2016, 07/15/2015, 05/24/2014 Influenza Virus Vaccine - Whole 06/23/2007 PNEUMOCOCCAL [...] Sign Reading Time Taken Comments Blood Pressure 138/92 06/23/2019 8:34 AM EDT Pulse 72 06/23/2019 8:34 AM EDT Temperature - - Respiratory Rate - - Oxygen Saturation 99% 06/23/2019 8:34 AM EDT Inhaled Oxygen Concentration - - Weight 89.8 kg (197 lb 14.4 oz) 06/23/2019 8:34 AM EDT Height 175.3 cm (5' 9") 06/23/2019 8:34 AM EDT Body Mass Index 29.22 06/23/2019 8:34 AM EDT documented in this encounter Progress Notes Jaida Hess MD - 06/23/2019 8:40 AM EDT NAME:Eleuterio Chatman 1945: 1945 ENC Date: 06/23/2019 CC: Chief Complaint Patient presents with Follow Up 6 month follow up and discuss CPAP Eleuterio Chatman is a 74-y.o. male [address] Jackson - Coming up 2. Will get sleep study at the Hospital - 3. Has seborrheic keratosis 4. Walking - 45 min - Current Outpatient Medications Medication Sig Apixaban [...] Patient Active Problem List Diagnosis Date Noted Persistent atrial fibrillation 05/15/2019 Nuclear medicine stress [...] Alcohol/week: 0.0 standard drinks Drug use: No Results for orders placed or performed in visit on 06/13/19 CBC WITH DIFFERENTIAL Result Value Ref Range WBC Count 6.34 4.23 - 9.07 K/uL RBC Count 5.16 4.30 - 5.89 M/UL Hemoglobin 14.1 13.7 - 17.5 g/dL Hematocrit 44.7 40.1 - 51.0 % MCV 86.6 79.0 - 92.2 FL MCH 27.3 25.7 - 32.2 PG MCHC 31.5 (L) 32.3 - 36.5 g/dL Platelet Count 182 163 - 337 K/uL MPV 10.8 9.4 - 12.4 FL RDW 14.0 11.6 - 14.4 % Neutrophil % 64.3 34.0 - 67.9 % Lymphocyte % 20.5 (L) 21.8 - 53.1 % Monocyte % 12.3 (H) 5.3 - 12.2 % Eosinophil % 2.1 0.8 - 7.0 % Basophil % 0.5 0.2 - 1.2 % nRBC % 0.0 0.0 - 0.2 % Neutrophil # 4.08 1.78 - 5.38 K/UL Lymphocyte # 1.30 (L) 1.32 - 3.57 K/UL Monocyte # 0.78 0.30 - 0.82 K/UL Eosinophil # 0.13 0.04 - 0.54 K/UL Basophil # 0.03 0.01 - 0.08 K/UL Immature Gran % 0.3 0.0 - 0.4 % Immature Gran # 0.02 0.00 - 0.03 K/uL NRBC # 0.00 0.00 - 0.12 K/uL COMPREHENSIVE METABOLIC PANEL Result Value Ref Range Sodium 136 134 - 145 mmol/L Potassium 4.2 3.5 - 5.1 mmol/L Chloride 96 (L) 98 - 107 mmol/L CO2 29 22 - 30 mmol/L Calcium 10.0 8.3 - 10.1 mg/dl Albumin 4.8 3.5 - 5.0 g/dl BUN 18 9 - 20 mg/dl Creatinine 0.9 0.8 - 1.5 mg/dl Glucose 97 70 - 99 mg/dl Total Protein 8.5 (H) 6.3 - 8.2 g/dl Total Bilirubin 1.2 (H) 0.0 - 1.1 MG/DL AST 38 17 - 59 U/L ALT 48 21 - 72 U/L Alkaline Phosphatase 69 40 - 150 U/L eGFR >60 See Interpretation Below ml/min/1.73ml Sq BUN/Creatinine Ratio 20 6 - 22 RATIO Anion Gap 11 3 - 11 mmol/L A/G Ratio 1.3 0.8 - 2.0 ratio LIPID PROFILE Result Value Ref Range Cholesterol 140 <200 mg/dl HDL Cholesterol 31 (L) >40 mg/dl Triglycerides 121 <150 mg/dl LDL Cholesterol 85 <100 MG/DL Cholesterol / HDL Ratio 4.5 RATIO LDL / HDL Ratio 2.7 Non-HDL Cholesterol 109 0 - 130 MG/DL MAGNESIUM LEVEL Result Value Ref Range Magnesium 1.9 1.6 - 2.3 MG/DL OBJECTIVE: BP (!) 138/92 | Pulse 72 | Ht 5' 9" (1.753 m) | Wt 197 lb 14.4 oz (89.8 kg) | SpO2 99% | BMI 29.22 kg/m . Heent neg Neck no JVD, thyromegaly or bruit Lungs Clear CV irregular Back Abd soft, nontender, no organomegaly Ext no edema; no lesions; pulses intact Neuro: intellect intact ; motor including gait unremarkable A/P ICD-9-CM ICD-10-CM 1. Essential hypertension 401.9 I10 2. Coronary artery disease involving [place] coronary artery of [place] heart without angina pectoris 414.01 I25.10 3. Lipid disorder 272.9 E78.9 4. Persistent atrial fibrillation 427.31 I48.19 There are no Patient Instructions on file for this visit. AUTHOR: Jaida Hess MD 09:18 06/23/2019 documented in this encounter Plan of Treatment Date Type Specialty Care Team Description 06/29/2019 Office Visit Cardiology Reese Correa MD [address] [place] [address] [phone] Health Maintenance Due Date Last Done Comments FALL RISK ASSESSMENT 2011 ZOSTER IMMUNIZATION SERIES 02/07/2016 12/13/2015 (2 of 3) MEDICARE ANNUAL WELLNESS 05/28/2017 05/28/2016, 05/28/2016, VISIT 05/24/2014, Additional history exists INFLUENZA VACCINE (#1) 2019 06/22/2018, 05/31/2017, 05/28/2016, Additional history exists COLONOSCOPY SCREENING 01/01/2020 12/31/2014, 10/09/2009 LIPID DISORDER SCREENING 06/13/2020 06/13/2019, 02/06/2019, 06/14/2018, Additional history exists DEPRESSION SCREENING 06/23/2020 06/23/2019 PNEUMOCOCCAL 65+YRS Completed 07/01/2017, 08/26/2015 HPV IMMUNIZATION SERIES Aged Out No longer eligible based on patient's age to complete this topic MENINGOCOCCAL VACCINE IMM Aged Out No longer eligible based on patient's age to complete this topic documented as of this encounter Goals Goal Patient Goal Associated Recent Patient-Stated? Author Type Problems Progress Blood Pressure Blood Pressure 138/92 No Jimena, < 150/90 (06/23/2019 MD Jaida 8:34 AM EDT) Note: This is an individualized treatment (blood pressure) goal for Eleuterio Chatman: Displayed above (on the left) is your goal for blood pressure control. Your most recent blood pressure is also shown above, on the right. You should try to achieve blood pressures that are lower than your goal listed above (on the left). Weight loss vs. 18 mo Lifestyle 3.1 (06/23/2019 8:34 AM EDT) No Jaida Hess MD max (lbs) >= 10 Note: This is an [...] Essential hypertension - Primary Unspecified essential hypertension Coronary artery disease involving [place] coronary artery of [place] heart without angina pectoris Lipid disorder Unspecified disorder of lipoid metabolism Persistent atrial fibrillation Atrial fibrillation documented in this encounter Insurance Payer Benefit Plan / Subscriber ID Effective Dates Phone Address Type Group [employer]LL[employer] xxxxxxxxxxxx 2015-Present [employer] MEDICARE BLUE PPO [phone]) Guarantor Name Account Type Relation to Date of Phone Billing Address Patient Eleuterio Chatman Personal/Famil 1945 [address] [phone] [place], [place] (Work) [id number] documented as of this encounter
--- OUTSIDE RECORDS SUMMARY | 2019-08-13 05:48 | XMS REPORT | Continuity of Care Document ---
:1945 External Reference #:[id number] Author Name Tamara Skinner M.D. (transmitted by agent of provider Estephania Goodman) Address [address] [address] Care Team Providers Name Role Phone Jaida Hess MD - Internal Medicine Care Team Information Aquatics Specialist Problems Active Problems Provider Date Atrial fibrillation Tamara Skinner M.D. Onset: 05/17/2019 Social History Type Date Description Comments Sex Unknown ETOH Use Occasionally consumes beer Tobacco Use Start: Unknown Patient has never smoked Recreational Drug Use Denies Drug Use Smoking Status Reviewed: 05/30/19 Patient has never smoked Exercise Type/Frequency Exercises regularly Allergies, Adverse Reactions, Alerts Active Allergies Reaction Severity Comments Date Penicillin childhood reaction unknown 11/12/2017 Inactive Allergies NKDA 04/19/2017 Medications Active Medications SIG Qnty Indications Ordering Provider Date Omeprazole 1 by mouth every Unknown 10mg day Capsules DR Lipitor 1 by mouth at Unknown 80mg Tablets bedtime Lisinopril-Hydrochlo Two tablets by McClinisabelle, rothiazide mouth daily Reese Moeller MD 20-25mg Tablets Metoprolol Succinate once a day Jaida Hess MD ER 100mg Tablets ER 24HR Eliquis 1 by mouth twice 180tabs Tamara Beasley 5mg Tablets a day Erasto Skinner Benadryl Allergy 1 tablet by mouth Unknown 25mg at bedtime as Capsules needed for insomnia Immunizations Description No Information Available Vital Signs Date Vital Result Comment 05/30/2019 8:28am Height 71 inches 5'11" Weight 195.00 lb with sandals/clothes Heart Rate 80 /min radial, irregular BP Systolic Sitting 142 mmHg LA, reg cuff BP Diastolic Sitting 90 mmHg LA, reg cuff BP Systolic Standing 138 mmHg LA, reg cuff BP Diastolic Standing 90 mmHg LA, reg cuff BMI (Body Mass Index) 27.2 kg/m2 Ejection Fraction 60%-65% eccho 05/04/19 04/26/2019 1:44pm Height 71 inches 5'11" Weight 199.25 lb with shoes Heart Rate 86 /min radial, irregular BP Systolic Sitting 156 mmHg LA, reg cuff BP Diastolic Sitting 100 mmHg LA, reg cuff BP Systolic Standing 142 mmHg Ra sitting, reg cuff BP Diastolic Standing 90 mmHg Ra sitting, reg cuff BP Systolic Lying Down 136 mmHg Ra standing, reg cuff BP Diastolic Lying Down 86 mmHg Ra standing, reg cuff Body Temperature 98.1 F oral BMI (Body Mass Index) 27.8 kg/m2 Ejection Fraction 60%-65% echo 08/20/17 Results Description No Information Available Procedures Date Code Description Status 05/17/2019 65318 Moderate Sedation Services; Same Phys Intl 15 Mins; PT >= Completed 5 Years 05/17/2019 83127 Color Flow Doppler/Interp & Reprt Completed 05/17/2019 99194 Pulse Wave/Continuous-Interp.RPT Completed 05/17/2019 19565 Echocardiography, Transesophageal, Real Time W/Image 2D Completed W/W/O M-M 05/08/2019 51435 Holter Monitor Review (24 hr)dr review & interp only Completed 05/04/2019 63560 ECHO Transthoracic, Real-Time 2D With Doppler And Color Completed Flow 05/04/2019 03903 ECHO Transthoracic, Real-Time 2D With Doppler And Color Completed Flow 05/03/2019 67936 Treadmill Interp/Report Only Completed 05/03/2019 25640 Stress Test Supervsn W/Out I/R Completed 05/02/2019 38845 Echocardiography, Transesophageal, Real Time W/Image 2D Completed W/W/O M-M 05/01/2019 14314 ECG Monitor/Recording W/Visual Superimposition Scanning Completed 04/26/2019 71621 EKG Tracing & Interpretation Completed Medical Devices Description No Information Available Encounters Type Date Location Provider Dx Diagnosis Office Visit 05/30/2019 [facility] Tamara Beasley I48.91 Unspecified atrial 9:00a Erasto Skinner fibrillation I10 Essential (primary) hypertension I25.10 [place] heart disease of [place] [facility] G47.30 Sleep apnea, unspecified I34.0 Nonrheumatic mitral (valve) insufficiency I35.1 Nonrheumatic aortic (valve) insufficiency E78.5 Hyperlipidemia, unspecified Office 04/26/2019 [place] Tamara Beasley R94.31 Abnormal Visit 2:20p Cardiology Erasto Skinner electrocardiogram [ECG] [EKG] I48.91 Unspecified atrial fibrillation I10 Essential (primary) hypertension I25.10 Athscl heart disease of [place] coronary artery w/o [facility] G47.30 Sleep apnea, unspecified Assessments Date Code Description Provider 05/30/2019 I48.91 Unspecified atrial fibrillation Tamara Skinner M.D. 05/30/2019 I10 Essential (primary) hypertension Tamara Skinner M.D. 05/30/2019 I25.10 Atherosclerotic heart disease of [place] Tamara Skinner M.D. coronary artery without angina [...] Skinner M.D. 05/04/2019 I48.91 Unspecified atrial fibrillation [place] [facility] Schedule 05/04/2019 R94.31 Abnormal electrocardiogram [ECG] [EKG] [place] [facility] Schedule 05/04/2019 I10 Essential (primary) hypertension [place] [facility] Schedule 05/04/2019 I25.10 Atherosclerotic heart disease of [place] [facility] Schedule coronary artery without angina pectoris [...] M.D. 04/26/2019 I25.10 Atherosclerotic heart disease of [place] Tamara Skinner M.D. coronary artery without angina pectoris 04/26/2019 G47.30 Sleep apnea, unspecified Tamara Skinner M.D. Plan of Treatment Future Appointment(s):08/08/2019 8:00 am - Lubna Brewer MD at [facility]05/30/2019 - Tamara Skinner M.D.I48.91 Unspecified atrial fibrillationFollow up:9 months ovI10 Essential (primary) zkweeiqqrtaqV64.10 Atherosclerotic heart disease of [place] coronary artery without angina uuhayrybO43.30 Sleep apnea, kzykfzgnwiuS58.0 Nonrheumatic mitral (valve) kxjgncemoezhaL34.1 Nonrheumatic aortic (valve) xdafapndumsxnG12.5 Hyperlipidemia, unspecified Functional Status Description No Information Available Mental Status Description No Information Available Referrals Refer to Reason for Referral Status Appt Date Lubna Brewer MD sleep apnea Sent 06/28/[address] [place] [phone]
[2019-08-13] MEDS ORDERED: Diazepam TAB(*) 5 MG PO ONE (07:19)
--- NOTE | 2019-08-13 07:26 | ED ---
Back Pain - HPI Summary HPI Summary: Pt here w/ Lt upper back pain x a few weeks. "Pulling sensation" that goes down back but not into buttock. Noticed while lying on his side one night - better when rolling onto back flat, but pain is persistent despite trying tylenol and bengay rub. He admits neck pain associated with this which improved w/ neck stretches. He also denies chest pain, SOB, dizziness, fatigue, diaphoresis, jaw, pain, weakness, RUIZ. Reports [place] the [place] yesterday and felt fine. H/o bypass 27 y.o. and recent h/o ablation for a. fib. Had cardiac check 3 weeks ago and everything was clear. Here today as he's concerned about 5-7/10 pain that is unrelenting. Also worried as his has upcoming cancer surgery and they wanted to make sure he's taken care of before she embarks on this journey this week. Saw PCP 2 weeks ago for this pain and was told it was RIA and if it got worse, they would do more tests. - History of Current Complaint Chief Complaint: EDBackInjuryPain Stated Complaint: BACK PAIN PER PT Time Seen by Provider: 08/13/19 06:56 Hx Obtained From: Patient, Family/Shipboard Intelligence Analyst - Pain Intensity: 5 - Allergies/Home Medications Allergies/Adverse Reactions: Allergies Allergy/AdvReac Type Severity Reaction Status Date / Time Penicillins Allergy See Comment Verified 08/13/19 05:43 PMH/Surg Hx/FS Hx/Imm Hx Previously Healthy: Yes Endocrine/Hematology History: Reports: Hx Anticoagulant Therapy - eliquis for a. fib Denies: Hx Diabetes, Hx Thyroid Disease Cardiovascular History: Reports: Hx Angina - 25 YEARS AGO, Hx Coronary Artery Disease - 25 YEARS AGO-OPEN HEART [id number] AT [place], Hx Hypercholesterolemia, Hx Hypertension - ON MEDICATION FOR, Other Cardiovascular Problems/Disorders - SOME VALVE REGURGITATION PER PATIENT//DR. KRISHNA Denies: Hx Congestive Heart Failure, Hx Myocardial Infarction, Hx Pacemaker/ ICD, Hx Valvular Heart Disease Respiratory History: Reports: Hx Sleep Apnea - POSSIBLY - NOT FORMALLY DIAGNOSED -SNORING Denies: Hx Asthma, Hx Chronic Obstructive Pulmonary Disease (COPD) GI History: Reports: Hx Diverticulosis, Hx Gastroesophageal Reflux Disease - ON MEDICATION FOR, Hx Hiatal Hernia, Other GI Disorders - 03/09 special screening for malignant neoplasms/colon Denies: Hx Ulcer History: Reports: Hx Benign Prostatic Hyperplasia Denies: Hx Renal Disease Musculoskeletal History: Reports: Hx Arthritis - HANDS Sensory History: Reports: Hx Cataracts - BIALTERAL Denies: Hx Contacts or Glasses, Hx Hearing Aid Opthamlomology History: Reports: Hx Cataracts - BIALTERAL Denies: Hx Contacts or Glasses Neurological History: Reports: Other Neuro Impairments/Disorders - " OCCASIONALLY WHILE LYING IN BED-WHOLE BODY SHAKES FOR A FRACTION OF A SEC" Psychiatric History: Reports: Hx Anxiety - Surgical History Surgery Procedure, Year, and Place: 08/2008 (right) hydrocele. CABG x 4 1992. LEFT INGUINAL HERNIA-30 YEARS AGO. CARPAL TUNNEL RELEASE- BILATERAL Hx Anesthesia Reactions: No Infectious Disease History: No Infectious Disease History: Denies: Hx Clostridium Difficile, Hx Hepatitis, Hx Human Immunodeficiency Virus (HIV), Hx of Known/Suspected MRSA, Hx Shingles, Hx Tuberculosis, Hx Known/ Suspected VRE, Hx Known/Suspected VRSA, History Other Infectious Disease, Traveled Outside the in Last 30 Days - Family History Known Family History: Positive: Cardiac Disease - parents, Hypertension - Social History Occupation: Retired Lives: With Family - Alcohol Use: Rare Alcohol Amount: every other week 1 beer Hx Substance Use: No Substance Use Type: Reports: None Hx Tobacco Use: No Smoking Status (MU): Never Smoked Tobacco Review of Systems Constitutional: Negative Negative: Fever, Chills, Fatigue Eyes: Negative ENT: Negative Cardiovascular: Negative Respiratory: Negative Gastrointestinal: Negative Positive: no symptoms reported - urinating well Positive: Arthralgia Skin: Negative Neurological: Negative Negative: Headache, Weakness, Paresthesia, Numbness, Syncope, Slurred Speech Positive: Anxious All Other Systems Reviewed And Are Negative: Yes Physical Exam Triage Information Reviewed: Yes Vital Signs On Initial Exam: Initial Vitals Temp Pulse Resp BP Pulse Ox 97.8 F 81 16 165/91 99 08/13/19 05:39 08/13/19 05:39 08/13/19 05:39 08/13/19 05:39 08/13/19 05:39 Vital Signs Reviewed: Yes Appearance: Positive: Well-Appearing, No Pain Distress, Well-Nourished Skin: Positive: Warm, Skin Color Reflects Adequate Perfusion, Dry, Other - old vertical scar over sternum Head/Face: Positive: Normal Head/Face Inspection Eyes: Positive: Normal, EOMI, JENNY ENT: Positive: Hearing grossly normal, Pharynx normal - mucosa moist Neck: Positive: Supple, Nontender Respiratory/Lung Sounds: Positive: Clear to Auscultation, Breath Sounds Present. Negative: Rales, Rhonchi, Wheezes Cardiovascular: Positive: Normal, RRR, Pulses are Symmetrical in both Upper and Lower Extremities, Other - no bruits, S1, S2. Negative: Murmur, Rub, Leg Edema Left, Leg Edema Right Abdomen Description: Positive: Nontender, No Organomegaly, Soft Bowel Sounds: Positive: Present Musculoskeletal: Positive: Normal, Strength/ROM Intact, Other - Lt trap, rhomboids are TTP - feels better with shoulders retracted Neurological: Positive: Normal, Sensory/Motor Intact, Alert, Oriented to Person Place, Time, CN Intact II-III Psychiatric: Positive: Normal - subtle anxiety but overall pleasant, in good spirits - Moran Coma Scale Best Eye Response: 4 - Spontaneous Best Motor Response: 6 - Obeys Commands Best Verbal Response: 5 - Oriented Coma Scale Total: 15 Procedures - Sedation Patient Received Moderate/Deep Sedation with Procedure: No Diagnostics - Vital Signs Vital Signs Temp Pulse Resp BP Pulse Ox 08/13/19 06:31 74 18 149/90 98 08/13/19 06:00 73 16 157/93 99 08/13/19 05:51 79 16 99 08/13/19 05:39 97.8 F 81 16 165/91 99 - Laboratory Lab Statement: Any lab studies that have been ordered have been reviewed, and results considered in the medical decision making process. Re-Evaluation - Re-Evaluation First Eval Change: Improved - pain much better w/ diazepam - reports he also feels "jolly" - appears more relaxed Back Pain Course/Dx - Course Course Of Treatment: Discussed w/ pt and this appears to be RIA in nature however given his cardiac h/o and their concerns, will perform some cardiac tests as well. They are requesting a shoulder XR which I obliged although his sx correlate w/ spasm vs. arthritis. ECG - NSR, no ST elevation, no blocks. Trop - 0.01. INR - 1.29 (pt on eliquis). CXR - no acute cardiopulm findings - appears to have cardiomegaly. Lt shoulder XR - AC joint OA and calcific tendon of suprapsinatus. WIll d/c in stable condition w/ stretches and short course of valium - recommended f/u w/ PCP and PT. Reviewed danger s/sx - pt and agree w/ plan. - Diagnoses Provider Diagnoses: Muscle spasm Discharge ED - Sign-Out/Discharge Documenting (check all that apply): Patient Departure - Discharge Plan Condition: Stable Disposition: HOME Prescriptions: Diazepam TAB(*) [Valium TAB(*)] 5 mg PO BEDTIME PRN #5 tab MDD 1 PRN Reason: Pain - Moderate Patient Education Materials: Muscle Spasm (ED) Referrals: Jaida Hess MD [Primary Care Provider] - Additional Instructions: You appear to have a muscle spasm of your back today. It is important that she stay hydrated, apply moist heat followed by perform stretches and exercises reviewed (i.e. scapular retraction, gentle range of motion of the shoulder and neck, etc.). He may also take extra strength Tylenol every 6 hours as needed for pain and Valium before bed if pain is interfering with sleep. Follow-up with your PCP for referral to physical therapy. If in the meantime you develop chest pain, shortness of breath, difficulty breathing , cough/bloody cough, dizziness, sweating, nausea, vomiting, jaw pain , arm pain, return to the emergency department. - Billing Disposition and Condition Condition: STABLE Disposition: Home
[2019-08-13 07:41] LABS: INR 1.29 (0.82-1.09)
[2019-08-13 09:15] VITALS: BP 135/81
== END 2019-08-13 09:14 | disposition home or self-care (01) ==
LOC: ED 05:38
DX: M62.838 Other muscle spasm (principal); I48.91 Unspecified atrial fibrillation; I25.10 Atherosclerotic heart disease of native coronary artery without angina pectoris; E78.00 Pure hypercholesterolemia, unspecified; I10 Essential (primary) hypertension; K21.9 Gastro-esophageal reflux disease without esophagitis; N40.0 Benign prostatic hyperplasia without lower urinary tract symptoms; F41.9 Anxiety disorder, unspecified; Z95.1 Presence of aortocoronary bypass graft; Z79.01 Long term (current) use of anticoagulants; Z79.899 Other long term (current) drug therapy; Z88.0 Allergy status to penicillin
CPT/HCPCS: 36415; 71045; 84484; 85610; 93005; 99283; A9270-GY